=== PATIENT | female | born 1985 ===

== ENCOUNTER 2018-09-04 07:14 | Inpatient (IN) ==
[2018-09-04] MEDS ORDERED: LORazepam 1 MG Tablet PO PRN (13:34)
[2018-09-04] MEDS ORDERED: Aluminum/Magnesium/Simethacone Susp 30 ML UDC PO PRN (13:34)
[2018-09-04] MEDS ORDERED: Senna/Docusate Sodium 8.6/50 MG Tablet PO PRN (13:34)
[2018-09-04] MEDS ORDERED: Bisacodyl 10 MG Supp RECTAL PRN (13:34)
[2018-09-05 09:32] LABS: Calcium 8.6 mg/dL (8.5-10.1); Carbon Dioxide 24.3 meq/L (21.0-32.0); Potassium 3.6 meq/L (3.5-5.1)
[2018-09-05 09:42] LABS: Chol/HDL Ratio 2.95 Ratio; Thyroid Stimulating Hormone 1.5 uIU/mL (0.358-3.740)
[2018-09-05 13:47] LABS: Hemoglobin A1c 5.5 % (4.3-6.0)
--- NOTE | 2018-09-05 15:26 | P.HPPSY ---
Provisional Diagnosis Admission Date: September 04, 2018 09:44 Competence Certification of Person's Competence To Provide Express and Informed Consent I have personally examined Margret Colunga, a person being [facility] at [facility] on, September 05, 2018 1521. Express and informed consent means consent voluntarily given in writing, by a competent person, after sufficient explanation and disclosure of the subject matter involved to enable the person to make a knowing and willful decision without any element of force, fraud, deceit, duress, or other form of constraint or coercion. This person is 18 years of age or older, is not now known to be incompetent to consent to treatment with a guardian advocate, and does not have a health care surrogate or proxy currently making medical treatment decisions. I have found this person to be one of the following: [X] Competent to provide express and informed consent, as defined above, for voluntary admission to this facility and is competent to provide express and informed consent for treatment. He/she has the consistent capacity to make well reasoned, willful, and knowing decisions concerning his or her medical or mental health treatment. The person fully and consistently understands the purpose of the admission for examination/placement and is fully capable of personally exercising all rights assured [place] Incompetent to provide express and informed consent to voluntary admission, and this is incompetent to provide express and informed consent to treatment. The person must be transferred to involuntary status and a petition for a guardian advocate filed with the Circuit Court. [] Refusing to provide express and informed consent to voluntary admission but is competent to provide express and informed consent for treatment. The person must be discharged or transferred to involuntary status. Form shall be completed within 24 hours of a person's arrival at the receiving facility and filed in the clinical record of each person: 1. Admitted on a voluntary basis 2. Permitted to provide express and informed consent to his/her own treatment 3. Allowed to transfer from involuntary to voluntary status 4. Prior to permitting a person to consent to his or her own treatment after having been previously found incompetent to consent to treatment. History of Present Illness Capacity: Has capacity Chief Complaint: depression History of Present Illness: Patient is a 33-year-old female who denies a psychiatric history. Patient describes many stressors and subsequently overdosed on taking about 20 pills. Stressors include breaking up with her fianc of 7 years for possible infidelity. Losing custody of her kids. Mood has been depressed, energy has been low, she has been crying frequently. Today, she does deny suicidal or homicidal ideation intent or plan. She says she is motivated to work on herself and wants to take time to further her career and go to the gym. Another stressor is a 70 pound weight gain in the last 2 years since moving to [facility] Past psych: Denies outpatient, inpatient, suicide attempts Past medical: See chart Past Famhx: Mother and aunt both have depression. Past Social: Lost custody of her kids to her ex-. She moved here from [place] 2 years ago. She drinks alcohol occasionally. Uses marijuana occasionally. - Inpatient Certification I certify that the inpatient services were ordered in accordance with Medicare regulations governing the order. This includes certification that hospital inpatient services are reasonable and necessary and in the case of services not specified as inpatient-only under 42 CFR 419.22(n), that they are appropriately provided as inpatient services in accordance to with the 2-midnight benchmark under 43 CFR 412.3(e) I certify that inpatient psychiatric hospital services are medically necessary. Evaluation and treatment and/or diagnostic testing are expected to improve the patient's condition. The patient needs on a daily basis, active treatment furnished directly by or requiring the supervision of inpatient psychiatric facility personnel. Estimated Total Length of Stay (Days): 7 Plans for Post Hospital Care: Not yet determined PMFSH - History History Provided By: Patient - Tobacco History Second Hand Smoke Exposure: No Smoking Status: Never smoker - Alcohol History How Often Do You Have a Drink Containing Alcohol: Never - Substance Use History Substance History: No History of Abuse - Immunization History Tetanus Immunization: Unsure Hx Influenza Vaccine This Season: No Medications and Allergies Active Medications: Active Medications Al Hydrox/Mg Hydrox/Simethicone (Mag-Al Plus Susp Liq) 30 ml PO Q6H PRN PRN Reason: DYSPEPSIA Al Hydroxide/Mg Hydroxide (Milk Of Magnesia Liq) 30 ml PO Q12H PRN PRN Reason: Mild Constipation Bisacodyl (Dulcolax Supp) 10 mg RECTAL DAILY PRN PRN Reason: SEVERE CONSITIPATION Diphenhydramine HCl (Benadryl) 50 mg PO HS PRN PRN Reason: INSOMNIA Lactulose (Lactulose Liq) 30 ml PO DAILY PRN PRN Reason: SEVERE CONSITIPATION Lorazepam (Ativan) 1 mg PO Q6H PRN PRN Reason: MODERATE TO SEVERE ANXIETY Senna/Docusate Sodium (Daxa-Colace) 1 tab PO BID PRN PRN Reason: CONSTIPATION Sennosides (Senokot) 17.2 mg PO Q12H PRN PRN Reason: Moderate Constipation Allergies Allergy/AdvReac Type Severity Reaction Status Date / Time No Known Allergies Allergy Verified 09/04/18 11:05 Results - Labs CBC & Chem 7: 09/05/18 08:10 Labs: Laboratory Results - last 24 hr 09/05/18 09/05/18 08:10 08:10 Sodium 140 Potassium 3.6 Chloride 107 Carbon Dioxide 24.3 Anion Gap 9 BUN 12 Creatinine 0.97 Estimated GFR 66 L Random Glucose 109 H Hemoglobin A1c 5.5 Calcium 8.6 Triglycerides 107 Cholesterol 130 LDL Cholesterol, Calc 65 HDL Cholesterol 44.0 Cholesterol/HDL Ratio 2.95 TSH 1.500 Exam Vital signs: Vital Signs 09/04/18 17:36 09/05/18 05:38 Temperature 98.4 F 98 F Pulse Rate 66 63 Respiratory Rate 16 18 Blood Pressure 125/58 L 112/64 Pulse Oximetry 99 99 Intake & Output 09/04/18 09/05/18 09/05/18 18:59 06:59 18:59 Weight 96.8 kg Other: Weight On Admission 96.8 kg Mental Status Examination Appearance: Appropriate Consciousness: Alert Orientation: x4 Motor Activity: Normal gait Speech: Hesitant, Slow Language: Adequate Fund of Knowledge: Adequate Attention and Concentration: Adequate Memory: Unremarkable Mood: Sad, Anxious Affect: Sad, Anxious Thought Process & Associations: Intact Thought Content: Appropriate Hallucination Type: None Delusion Type: None Suicidal Ideation: No Suicidal Plan: No Suicidal Intention: No Homicidal Ideation: No Homicidal Plan: No Homicidal Intention: No Insight: Poor Judgment: Poor Assessment and Plan - Assessment (1) Adjustment disorder Code(s): F43.20 - Adjustment disorder, unspecified Status: Acute - Plan Plan: Patient may sign voluntary. Start Lexapro 10 mg p.o. daily. Start Atarax 50 mg every 6 hours as needed for anxiety Justification for Continued Inpatient Stay: Patient would decompensate in a less restrictive setting
[2018-09-05] MEDS ORDERED: Escitalopram 10 MG Tablet PO SCH (15:30)
[2018-09-05] MEDS: Escitalopram 10 MG Tablet PO SCH (16:36)
[2018-09-06] MEDS: Escitalopram 10 MG Tablet PO SCH (08:13)
[2018-09-06] MEDS: Acetaminophen 325 MG Tablet PO PRN (10:16)
--- NOTE | 2018-09-06 11:47 | P.PNPSY ---
Subjective Chief Complaint: depression Remarks: Reviewed electronic medical record and discussed patient with staff. Patient in [facility] eating lunch. She states that she was in this relationship for seven years and knew it was not going well, but when he wanted to leave she was overwhelmed. Her children are in [place] with family and she see them every other month. States that the children did not want to leave their schools. She states that she has gained over 70 pounds this year. She denies suicidal ideations. She is focused and wants to work on herself so that she can be a better mom to her children. Asking for Melatonin for sleep. Review of Systems All other systems reviewed negative except as stated in HPI Mental Status Examination Appearance: Appropriate Consciousness: Alert Orientation: x4 Motor Activity: Normal gait Speech: Hesitant, Slow Language: Adequate Fund of Knowledge: Adequate Attention and Concentration: Adequate Memory: Unremarkable Mood: Sad, Anxious Affect: Sad, Anxious Thought Process & Associations: Intact Thought Content: Appropriate Hallucination Type: None Delusion Type: None Suicidal Ideation: No Suicidal Plan: No Suicidal Intention: No Homicidal Ideation: No Homicidal Plan: No Homicidal Intention: No Insight: Poor Judgment: Poor Assessment and Plan - Assessment (1) Depression Code(s): F32.9 - Major depressive disorder, single episode, unspecified Status : Acute - Plan Plan: Continue current treatment plan. Started on Lexapro yesterday. Justification for Continued Inpatient Stay: Moving patient to a less restrictive environment may result in her decompensation.
[2018-09-06] MEDS ORDERED: Melatonin 5 MG Tablet PO PRN (21:00)
--- NOTE | 2018-09-06 23:44 | ECG ---
Date Performed: 09/05/2018 Time Performed: 13:22:43 PTAGE: 33 years EKG: Sinus rhythm NORMAL ECG NO PREVIOUS TRACING DOCTOR: Justin Angeles Interpretating Date/Time 09/06/2018 23:43:23
[2018-09-07] MEDS: Escitalopram 10 MG Tablet PO SCH (08:46)
[2018-09-07] MEDS: Acetaminophen 325 MG Tablet PO PRN (09:01)
--- NOTE | 2018-09-07 15:16 | P.DSPSY ---
Psychiatry Discharge Summary Inpatient Psychiatric care?: Yes Advance Directives: No Mental Health Advance Directive: No Health Care Proxy: No - Admission Admission Date: September 04, 2018 09:44 - Admission Diagnosis (1) Adjustment disorder with depressed mood Code(s): F43.21 - Adjustment disorder with depressed mood Brief History: Patient is a 33-year-old female who denies a psychiatric history. Patient describes many stressors and subsequently overdosed on taking about 20 pills. Stressors include breaking up with her fianc of 7 years for possible infidelity. Losing custody of her kids. Mood has been depressed, energy has been low, she has been crying frequently. Today, she does deny suicidal or homicidal ideation intent or plan. She says she is motivated to work on herself and wants to take time to further her career and go to the gym. Another stressor is a 70 pound weight gain in the last 2 years since moving to [facility] Past psych: Denies outpatient, inpatient, suicide attempts Past medical: See chart Past Famhx: Mother and aunt both have depression. Past Social: Lost custody of her kids to her ex-. She moved here from [place] 2 years ago. She drinks alcohol occasionally. Uses marijuana occasionally. Tobacco Use In Past 30 Days: No How Often Do You Have a Drink Containing Alcohol: Never Hospital Course: Patient's hospital course was uneventful. Patient seen by me with nurse Cathy. Patient sitting quietly in her room she is alert oriented. A good female stating he had recently moved down here from the [facility] this led to some conflict with her ex- over custody of their 2 boys 7 and 13 years old it appears now that there is somewhat sharing them. Which is financially stressful on the patient. Patient does have a regular job that is fairly well compensated. She also was told by her fianc that they are breaking up this led to the overdose attempt. Since then patient states that she has talked with her fianc he has apologized to work he wants them to make an attempt to get back together again. She is quite positive about that. She now denies suicidality homicidality patient compliant with her Lexapro that was started over the weekend by Dr. Olvera. At this time patient no longer meets criteria for inpatient psychiatric hospitalization she is here on a voluntary basis. Patient will be discharged today to herself with Rx times 1 month with a follow-up insurance panel until health if she gets the insurance in time for follow-up [facility] outpatient medication management - Discharge Discharge Date: 09/07/18 - Discharge Diagnosis (1) Adjustment disorder with depressed mood Code(s): F43.21 - Adjustment disorder with depressed mood Status: Acute Discharge Disposition: Home - Discharge Instructions Discharge Diet: Regular Diet Activities You Can Perform: Regular- No Restrictions - Discharge Time > 30 minutes Mental Status Examination Appearance: Appropriate Consciousness: Alert Orientation: x4 Motor Activity: Normal gait Speech: Hesitant, Slow Language: Adequate Fund of Knowledge: Adequate Attention and Concentration: Adequate Memory: Unremarkable Mood: Sad, Anxious Affect: Sad, Anxious Thought Process & Associations: Intact Thought Content: Appropriate Hallucination Type: None Delusion Type: None Suicidal Ideation: No Suicidal Plan: No Suicidal Intention: No Homicidal Ideation: No Homicidal Plan: No Homicidal Intention: No Insight: Poor Judgment: Poor Discharge/Advance Care Plan - Results Vital Signs: Last Vital Signs Temp 98.1 F 09/07/18 05:09 Pulse 73 09/07/18 05:09 Resp 17 09/07/18 05:09 BP 109/62 09/07/18 05:09 Pulse Ox 97 09/07/18 05:09 Lab Results: Laboratory Results Hemoglobin A1c 5.5 % (4.3-6.0) 09/05/18 08:10 Triglycerides 107 mg/dL (42-150) 09/05/18 08:10 Cholesterol 130 mg/dL (120-200) 09/05/18 08:10 LDL Cholesterol, Calc 65 mg/dL (0-99) 09/05/18 08:10 HDL Cholesterol 44.0 mg/dL (40.0-60.0) 09/05/18 08:10 TSH 1.500 uIU/mL (0.358-3.740) 09/05/18 08:10 Summary of Procedures: None done Pending Results: None - Medications Number of antipsychotic medications at discharge: 0 - Discharge Care Plan Goals to Promote Your Health: * To prevent worsening of your condition and complications * To maintain your health at the optimal level Directions to Meet Your Goals: Take your medications as prescribed Follow your dietary instruction Follow activity as directed Keep your appointments as scheduled Take your immunizations and boosters as scheduled If your symptoms worsen call your PCP, if no PCP go to Urgent Care Center or Emergency Room For 26/05 questions related to your inpatient stay or results of tests pending at discharge, please contact Dr. Edward Mendoza MD at Smoking is Dangerous to Your Health. Avoid second hand smoking
== END 2018-09-07 19:20 | disposition home or self-care (01) ==
LOC: H260 09:44
PROVIDERS: ADMIT Psychiatry & Neurology Psychiatry; ATTEND Psychiatry & Neurology Psychiatry